=== PATIENT | male | born 1935 | race African-American/Black ===

== ENCOUNTER → 2019-04-17 | Outpatient (CLI) | payer OTHER ==
[2014-05-22 21:18] VITALS: BP 170/98
[~2019-04-17] MED LIST: AMLO5TAB10 PO; ASPI-630 PO; ESOM40CA PO; FLUO40CA9 PO; HYDR-2145 PO; HYDR-2761 PO; HYDR-2765 PO; LISI10TA2 PO; LOSA-73 PO; MELO15TA23 PO; NITR0.4T22 SL; SIMV10TA3 PO; TRAZ-118 PO; UNABLE MC
--- NOTE | 2019-04-17 09:58 | CARD ---
MR#: [id number] Date of Study: 04/17/2019 Ordering Physician: BEKA LEON, Referring Physician: BEKA LEON Tech: Jane Her RDCS APPROVED REPORT EXAM: Two-dimensional and M-mode echocardiogram with Doppler and color Doppler. Other Information Quality : AverageHR: 67bpm Rhythm : NSR INDICATION Dyspnea 2D DIMENSIONS RVDd2.9 (2.9-3.5cm)Left Atrium(2D)3.7 (1.6-4.0cm) IVSd1.1 (0.7-1.1cm)Aortic Root(2D)3.4 (2.0-3.7cm) LVDd3.6 (3.9-5.9cm)LVOT Diameter2.2 (1.8-2.4cm) PWd1.0 (0.7-1.1cm)LVDs2.6 (2.5-4.0cm) FS (%) 28.0 %SV30.8 ml LVEF(%)55.1 (>50%) M-Mode DIMENSIONS Left Atrium(MM)3.53 (2.5-4.0cm)Aortic Root3.14 (2.2-3.7cm) Aortic Valve AoV Peak Richard.313.6cm/sAoV VTI83.4cm AO Peak GR.39.3mmHgLVOT Peak Richard.87.3cm/s AO Mean GR.26mmHgAVA (VMAX)1.02cm2 HIPOLITO (VTI)1.00cm2 Mitral Valve MV E Otrosfqk55.1cm/sMV E Peak Gr.5mmHg MV DECEL [id number] A Jijvbfay583.1cm/s MV E Mean Gr.2mmHgE/A Ratio0.8 Pulmonary Valve PV Peak Svbidxfr82.2cm/s LEFT VENTRICLE The left ventricle is normal size. There is borderline to mild concentric left ventricular hypertroph y. The left ventricular systolic function is low normal. EF 50% There is grossly normal LV segmental wall motion. Septal motion suggestive of conduction defect. Transmitral Doppler flow pattern is Grade I-abnormal relaxation pattern. RIGHT VENTRICLE The right ventricle is normal size. There is normal right ventricular wall thickness. The right ventr icular systolic function is normal. ATRIA The left atrium size is normal. The right atrium size is normal. The interatrial septum is intact wit h no evidence for an atrial septal defect or patent foramen ovale as noted on 2-D or Doppler imaging. AORTIC VALVE The aortic valve is moderately calcified. The aortic valve is trileaflet. Doppler and Color Flow reve aled trace to mild aortic regurgitation. There is moderate to severe valvular aortic stenosis. Calcul ated aortic valve area is 1.0 cm2 with maximum pressure gradient of 39 mmHg and mean pressure gradien t of 26 mmHg. Consider low flow low gradient . MITRAL VALVE Mitral annular calcification is mild. There is no evidence of mitral valve prolapse. There is no mitr al valve stenosis. Doppler and Color-flow revealed trace mitral regurgitation. TRICUSPID VALVE The tricuspid valve is normal in structure and function. Doppler and Color Flow revealed no tricuspid valve regurgitation noted. There is no tricuspid valve prolapse or vegetation. There is no tricuspid valve stenosis. PULMONIC VALVE The pulmonic valve is not well visualized. GREAT VESSELS The aortic root is normal in size. The ascending aorta is normal in size. The IVC was not visualized. PERICARDIAL EFFUSION There is no evidence of significant pericardial effusion. Critical Notification Critical Value: No <Conclusion> The left ventricular systolic function is low normal. EF 50% There is grossly normal LV segmental wall motion. Septal motion suggestive of conduction defect. There is moderate to severe valvular aortic stenosis. Calculated aortic valve area is 1.0 cm2 with m aximum pressure gradient of 39 mmHg and mean pressure gradient of 26 mmHg. Consider low flow low grad ient . Signed by : Feng King, Electronically Approved : 04/17/2019 09:58:02
== END | disposition home or self-care (01) ==
LOC: ECHO 08:41
PROVIDERS: ATTEND Family Medicine
DX: I08.0 Rheumatic disorders of both mitral and aortic valves (principal)
CPT/HCPCS: 93306

== ENCOUNTER → 2019-09-18 | Outpatient (CLI) | payer OTHER ==
[2014-05-22 21:18] VITALS: BP 170/98
[~2019-09-18] MED LIST changes: +SIMV10TA15 PO; -SIMV10TA3 PO
--- NOTE | 2019-09-18 12:55 | CARD ---
MR#: [id number] Date of Study: 09/18/2019 Ordering Physician: DUKE RASMUSSEN, Referring Physician: DUKE RASMUSSEN, Tech: Brenda Ramirez [facility] APPROVED REPORT EXAM: Two-dimensional and M-mode echocardiogram with Doppler and color Doppler. Other Information Quality : Good INDICATION Aortic Valve Disease 2D DIMENSIONS RVDd2.4 (2.9-3.5cm)Left Atrium(2D)3.3 (1.6-4.0cm) IVSd1.1 (0.7-1.1cm)Aortic Root(2D)3.2 (2.0-3.7cm) LVDd4.4 (3.9-5.9cm)LVOT Diameter2.3 (1.8-2.4cm) PWd1.1 (0.7-1.1cm)LVDs2.7 (2.5-4.0cm) FS (%) 38.6 %SV59.1 ml LVEF(%)60.0 (>50%) Aortic Valve AoV Peak Richard.365.2cm/sAoV VTI83.3cm AO Peak GR.53.3mmHgLVOT Peak Richard.92.0cm/s AO Mean GR.25mmHgAVA (VMAX)1.06cm2 HIPOLITO (VTI)0.90cm2 Mitral Valve MV E Oxpuwuqm44.8cm/sMV DECEL BTWV144cn MV A Ivgeeljv589.2cm/sE/A Ratio0.7 Tricuspid Valve TR P. Aehtcqth470ll/sRAP YIQDGTRU2abFj TR Peak Gr.72oiDzUSWH81zxHb Pulmonary Vein S1 Yrfinbwk94.6cm/sD2 Dkewanqt61.8cm/s LEFT VENTRICLE The left ventricle is normal size. There is normal left ventricular wall thickness. The left ventricu lar systolic function is normal. The Ejection Fraction is 55%. There is normal LV segmental wall kiley on. Transmitral Doppler flow pattern is Grade I-abnormal relaxation pattern. RIGHT VENTRICLE The right ventricle is normal size. The right ventricular systolic function is normal. ATRIA The left atrium size is normal. The right atrium size is normal. The interatrial septum is intact wit h no evidence for an atrial septal defect or patent foramen ovale as noted on 2-D or Doppler imaging. AORTIC VALVE The aortic valve is calcified and displays decreased opening. Doppler and Color Flow revealed trace a ortic regurgitation. Calculated aortic valve area is 0.9 cm2 with maximum pressure gradient of 54 mmH g and mean pressure gradient of 25 mmHg. Doppler and color-flow analysis revealed moderate to severe aortic stenosis. MITRAL VALVE The mitral valve is calcified but opens well. Mitral annular calcification is mild. There is no evide nce of mitral valve prolapse. There is no mitral valve stenosis. Doppler and Color-flow revealed trac e mitral regurgitation. TRICUSPID VALVE The tricuspid valve is normal in structure and function. Doppler and Color Flow revealed trace tricus pid regurgitation. The PA pressure was estimated at 29 mmHg. There is no tricuspid valve stenosis. PULMONIC VALVE The pulmonic valve is not well visualized. Doppler and Color Flow revealed no pulmonic valvular regur gitation. There is no pulmonic valvular stenosis. GREAT VESSELS The aortic root is normal in size. The ascending aorta is normal in size. The IVC was not visualized. PERICARDIAL EFFUSION There is no evidence of significant pericardial effusion. Critical Notification Critical Value: No <Conclusion> The left ventricular systolic function is normal. The Ejection Fraction is 55%. There is normal LV segmental wall motion. Transmitral Doppler flow pattern is Grade I-abnormal relaxation pattern. Moderate to severe aortic stenosis. Mean gradient 25 mm Hg. Trace mitral regurgitation. Trace tricuspid regurgitation. The PA pressure was estimated at 29 mmHg. There is no evidence of significant pericardial effusion. Signed by : Dominic Mohr, Electronically Approved : 09/18/2019 12:55:20
== END | disposition home or self-care (01) ==
LOC: ECHO 10:43
PROVIDERS: ATTEND Internal Medicine Cardiovascular Disease
DX: I08.0 Rheumatic disorders of both mitral and aortic valves (principal)
CPT/HCPCS: 93306

== ENCOUNTER 2019-11-15 21:04 | Emergency (ER) | payer MEDICARE, OTHER ==
[~2019-11-15] VITALS: Ht 172.7 cm; Wt 75.0 kg
--- NOTE | 2019-11-15 22:47 | RAD ---
CT THORACIC SPINE WO CONTRAST History: Pain. T5-T6. No injury. Comparison: None. Technique: Noncontrast CT imaging was performed of the thoracic spine. Coronal and sagittal reconstructions were performed. Exposure: One or more of the following individualized dose reduction techniques were utilized for this examination: 1. Automated exposure control 2. Adjustment of the mA and/or kV according to patient size 3. Use of iterative reconstruction technique. Findings: Prior granulomatous disease within the chest. Calcified lymph nodes and calcified pulmonary nodules. Coronary artery calcification. Left renal parapelvic and cortical cysts Normal vertebral body height. No fractures. Moderate multilevel degenerative disc changes throughout the thoracic spine. Prominent upper lumbar spondylosis partially imaged. Multilevel facet arthropathy. Multilevel neuroforaminal narrowing. No high-grade canal stenosis.. Impression: 1. No acute fracture or subluxation of the thoracic spine. 2. Moderate multilevel thoracic spondylosis. Electronically signed by: Rex Madsen DO (11/15/2019 10:44 PM) [facility]
--- NOTE | 2019-11-15 22:54 | RAD ---
KUB History: Constipation Technique: Supine views of the abdomen. Comparison: None. Findings: Minimal small bowel gas. Air and stool scattered throughout the colon. Moderate colonic stool burden. Bilateral hip DJD. Multilevel lumbar spondylosis. Impression: 1. Nonobstructed bowel gas pattern. 2. Moderate colonic stool. Electronically signed by: Rex Madsen DO (11/15/2019 10:52 PM) [facility]
[2019-11-15 23:19] VITALS: BP 140/66
--- NOTE | 2019-11-15 23:25 | PHYS DOC ---
Past Medical History Past Medical History: Anxiety, Asthma, CHF, Depression, Hypertension Past Surgical History: Other Additional Past Surgical Histo: cataract Alcohol Use: Occasionally Drug Use: None Adult General Chief Complaint Chief Complaint: BACK PAIN OR INJURY HPI HPI 84-year-old male with underlying history of hypertension, diabetes, hyperlipidemia presents to the emergency Department complaints of right side pain. Pain is located just inferior to the shoulder blade. Patient states he was moving boxes in his basement on Tuesday noticed increasing pain after this activity. States pain is worse with movements. No significant pain at rest. Patient is well complains of constipation. She denies any chest pain, shortness breath, nausea, vomiting, abdominal pain. Movements make his pain worse, nothing makes his pain better. Review of Systems Review of Systems Constitutional: Denies fever or chills [] Respiratory: Denies cough or shortness of breath [] Cardiovascular: No additional information not addressed in HPI [] GI: Denies abdominal pain, nausea, vomiting, bloody stools or diarrhea, + constipation [] : Denies dysuria or hematuria [] Musculoskeletal: pain below right shoulder blade Integument: Denies rash or skin lesions [] Neurologic: Denies headache, focal weakness or sensory changes [] All other systems were reviewed and found to be within normal limits, except as documented in this note. Allergies Allergies Allergies Coded Allergies Type Severity Reaction Last Updated Verified codeine Allergy Mild vomitting 05/22/14 No Physical Exam Physical Exam Constitutional: Well developed, well nourished, no acute distress, non-toxic appearance. [] HENT: Normocephalic, atraumatic, bilateral external ears normal, oropharynx moist, no oral exudates, nose normal. [] Eyes: PERRLA, EOMI, conjunctiva normal, no discharge. [] Cardiovascular:Heart rate regular rhythm, no murmur [] Lungs & Thorax: Bilateral breath sounds clear to auscultation [] Abdomen: Bowel sounds normal, soft, no tenderness, no masses, no pulsatile masses. [] Skin: Warm, dry, no erythema, no rash. [] Back: No tenderness, no CVA tenderness, TTP below right shoulder blade Extremities: No tenderness, no edema. [] Neurologic: Alert and oriented X 3, no focal deficits noted. [] Psychologic: Affect normal, judgement normal, mood normal. [] Current Patient Data Vital Signs Vital Signs Date Time Temp Pulse Resp B/P (MAP) Pulse Ox O2 Delivery O2 Flow Rate FiO2 11/15/19 23:19 63 140/66 (90) 100 Room Air 11/15/19 21:30 97.8 12 97.8 EKG EKG [] Radiology/Procedures Radiology/Procedures [facility] [address] [place] [address] IMAGING REPORT Signed PATIENT: ANA MARÍA WEAVER ACCOUNT: [id number] : 1935 LOCATION: ER AGE: 84 SEX: M EXAM STATUS: REG ER ORD. PHYSICIAN: NAKUL SOLANO MD REASON: pain t5/t6, no injury PROCEDURE: CT THORACIC SPINE WO CONTRAST CT THORACIC SPINE WO CONTRAST History: Pain. T5-T6. No injury. Comparison: None. Technique: Noncontrast CT imaging was performed of the thoracic spine. Coronal and sagittal reconstructions were performed. Exposure: One or more of the following individualized dose reduction techniques were utilized for this examination: 1. Automated exposure control 2. Adjustment of the mA and/or kV according to patient size 3. Use of iterative reconstruction technique. Findings: Prior granulomatous disease within the chest. Calcified lymph nodes and calcified pulmonary nodules. Coronary artery calcification. Left renal parapelvic and cortical cysts Normal vertebral body height. No fractures. Moderate multilevel degenerative disc changes throughout the thoracic spine. Prominent upper lumbar spondylosis partially imaged. Multilevel facet arthropathy. Multilevel neuroforaminal narrowing. No high-grade canal stenosis.. Impression: 1. No acute fracture or subluxation of the thoracic spine. 2. Moderate multilevel thoracic spondylosis. Electronically signed by: Rex Madsen DO (11/15/2019 10:44 PM) [facility] DICTATED and SIGNED BY: REX MADSEN DO DATE: 11/15/19 2244 [] [facility] [address] [place] [address] IMAGING REPORT Signed PATIENT: ANA MARÍA WEAVER ACCOUNT: [id number] : 1935 LOCATION: ER AGE: 84 SEX: M EXAM STATUS: REG ER ORD. PHYSICIAN: NAKUL SOLANO MD REASON: constipation PROCEDURE: KUB KUB History: Constipation Technique: Supine views of the abdomen. Comparison: None. Findings: Minimal small bowel gas. Air and stool scattered throughout the colon. Moderate colonic stool burden. Bilateral hip DJD. Multilevel lumbar spondylosis. Impression: 1. Nonobstructed bowel gas pattern. 2. Moderate colonic stool. Electronically signed by: Rex Madsen DO (11/15/2019 10:52 PM) [facility] DICTATED and SIGNED BY: REX MADSEN DO DATE: 11/15/192251 Course & Med Decision Making Course & Med Decision Making Pertinent Labs and Imaging studies reviewed. (See chart for details) []84-year-old male with underlying history of hypertension, diabetes, hyperlipidemia presents to the emergency Department complaints of right side pain. Pain is located just inferior to the shoulder blade. Patient states he was moving boxes in his basement on Tuesday noticed increasing pain after this activity. States pain is worse with movements. No significant pain at rest. Patient is well complains of constipation. She denies any chest pain, shortness breath, nausea, vomiting, abdominal pain. Movements make his pain worse, nothing makes his pain better. Dragon Disclaimer Dragon Disclaimer This electronic medical record was generated, in whole or in part, using a voice recognition dictation system. Departure Departure Impression: Primary Impression: Upper back pain on right side Additional Impression: Constipation Disposition: HOME, SELF-CARE Condition: STABLE Referrals: BEKA LEON MD (PCP) Patient Instructions: Constipation, Adult, [id number]-[id number], Musculoskeletal Pain Additional Instructions: Recommend follow up with PCP 3 - 5 days Return to the ER with worsening symptoms, intractable pain, fever, altered mental status Tylenol/Motrin as needed for pain Lactulose prescription for constipation Flexeril as needed for spasm Scripts Diclofenac Sodium (DICLOFENAC SODIUM) 50 Mg Tablet. 0.5 TAB PO BID for 5 Days, #5 TAB 1 Refill Prov: NAKUL SOLANO MD 11/15/19 Lactulose (Lactulose) 10 Gm Packet 10 GM PO DAILY for 7 Days, #7 PKT Prov: NAKUL SOLANO MD 11/15/19 Cyclobenzaprine Hcl (CYCLOBENZAPRINE HCL) 10 Mg Tablet 1 TAB PO TID PRN for PAIN for 7 Days, #21 TAB Prov: NAKUL SOLANO MD 11/15/19 Problem Qualifiers Additional Impression: Constipation Constipation type: unspecified constipation type Qualified Codes: K59.00 - Constipation, unspecified NAKUL SOLANO MD Nov 15, 2019 23:25
[2019-11-15] MEDS ORDERED: LACT10PA3 PO (23:31)
[2019-11-15] MEDS ORDERED: CYCL10TA2 PO (23:31)
[2019-11-15] MEDS ORDERED: DICL50TA4 PO (23:32)
== END 2019-11-15 23:43 | disposition home or self-care (01) ==
LOC: ER 21:04
DX: M54.6 Pain in thoracic spine (principal); K59.00 Constipation, unspecified; I11.0 Hypertensive heart disease with heart failure; I50.9 Heart failure, unspecified; J45.909 Unspecified asthma, uncomplicated; F41.9 Anxiety disorder, unspecified; F32.9 Major depressive disorder, single episode, unspecified; Z88.5 Allergy status to narcotic agent
CPT/HCPCS: 72128; 74018; 99284-25

== ENCOUNTER → 2021-02-04 | Outpatient (CLI) | payer MEDICARE ==
[~2021-02-04] MED LIST changes: +AMLO-186 PO; -AMLO5TAB10 PO; +CYCL10TA2 PO; +DICL50TA4 PO; +LACT10PA3 PO; +LISI10TA16 PO; -LISI10TA2 PO
[2021-02-04 16:31] LABS: ALBUMIN 3.7 g/dL (3.4-5.0); CALCIUM 8.9 mg/dL (8.5-10.1); CREATININE 1.2 mg/dL (0.7-1.3); GFR 69.5; POTASSIUM 4.2 mmol/L (3.5-5.1); TOTAL BILIRUBIN 0.4 mg/dL (0.2-1.0); TOTAL PROTEIN 7.4 g/dL (6.4-8.2); URIC ACID 6.4 mg/dL (3.5-7.2)
--- NOTE | 2021-02-05 14:02 | CARD ---
MR#: [id number] Date of Study: 02/04/2021 Ordering Physician: DUKE RASMUSSEN, Referring Physician: DUKE RASMUSSEN, Tech: Brenda Ramirez [facility] APPROVED REPORT EXAM: Two-dimensional and M-mode echocardiogram with Doppler and color Doppler. Other Information Quality : Fair INDICATION Aortic Valve Disease 2D DIMENSIONS RVDd2.1 (2.9-3.5cm)Left Atrium(2D)4.0 (1.6-4.0cm) IVSd1.1 (0.7-1.1cm)Aortic Root(2D)2.5 (2.0-3.7cm) LVDd4.2 (3.9-5.9cm)LVOT Diameter2.3 (1.8-2.4cm) PWd1.1 (0.7-1.1cm)LVDs2.8 (2.5-4.0cm) FS (%) 34.4 %SV50.4 ml LVEF(%)63.9 (>50%) Aortic Valve AoV Peak Richard.382.2cm/sAoV VTI92.0cm AO Peak GR.58.4mmHgLVOT Peak Richard.94.0cm/s AO Mean GR.33mmHgAVA (VMAX)1.02cm2 HIPOLITO (VTI)1.00cm2 Mitral Valve MV E Kunyeqpt13.8cm/sMV DECEL DJLU706rx MV A Jpzlnhdg19.3cm/sE/A Ratio0.7 Tricuspid Valve TR P. Fcrqyvms064fc/sRAP TPIRTRIQ3xpBk TR Peak Gr.25xnKqFMBM33uyCu Pulmonary Vein S1 Kgeexpqq41.5cm/sD2 Jfiykxtx62.2cm/s LEFT VENTRICLE The left ventricle is normal size. There is normal left ventricular wall thickness. The left ventricu lar systolic function is normal and the ejection fraction is within normal range. The Ejection Fracti on is 55-60%. There is normal LV segmental wall motion. Tissue Doppler imaging reveals moderate left ventricular diastolic dysfunction. RIGHT VENTRICLE The right ventricle is normal size. The right ventricular systolic function is normal. ATRIA The left atrium is mildly dilated. The right atrium size is normal. The interatrial septum is intact with no evidence for an atrial septal defect or patent foramen ovale as noted on 2-D or Doppler imagi ng. AORTIC VALVE The aortic valve is calcified and displays decreased opening. Doppler and Color Flow revealed trace t o mild aortic regurgitation. Calculated aortic valve area is 1.0 cm2 with maximum pressure gradient o f 58 mmHg and mean pressure gradient of 33 mmHg. Doppler and color-flow analysis revealed moderate to severe aortic stenosis. MITRAL VALVE The mitral valve is calcified but opens well. There is no evidence of mitral valve prolapse. There is no mitral valve stenosis. Doppler and Color Flow revealed no mitral valve regurgitation noted. TRICUSPID VALVE The tricuspid valve is normal in structure and function. Doppler and Color Flow revealed physiologica l tricuspid regurgitation. The PA pressure was estimated at 27 mmHg. There is no tricuspid valve sten osis. PULMONIC VALVE The pulmonic valve is not well visualized. Doppler and Color Flow revealed trace to mild pulmonic jennifer vular regurgitation. There is no pulmonic valvular stenosis. GREAT VESSELS The aortic root is normal in size. The ascending aorta is not well seen. The IVC was not visualized. PERICARDIAL EFFUSION There is no evidence of significant pericardial effusion. Critical Notification Critical Value: No <Conclusion> The left ventricular systolic function is normal and the ejection fraction is within normal range. Th e Ejection Fraction is 55-60%. There is normal LV segmental wall motion. Calculated aortic valve area is 1.0 cm2 with maximum pressure gradient of 58 mmHg and mean pressure g radient of 33 mmHg. Doppler and color-flow analysis revealed moderate to severe aortic stenosis. Signed by : Duke Rasmussen, Electronically Approved : 02/05/2021 14:01:53
== END ==
LOC: ECHO 14:48
PROVIDERS: ATTEND Internal Medicine Cardiovascular Disease
DX: I08.8 Other rheumatic multiple valve diseases (principal)
CPT/HCPCS: 36415; 80053; 83880; 84550; 93306

== ENCOUNTER 2021-04-16 18:28 | Emergency (ER) | payer MEDICARE ==
[~2021-04-16] VITALS: Ht 172.7 cm; Wt 82.7 kg
--- NOTE | 2021-04-16 19:14 | PHYS DOC ---
Past Medical History Past Medical History: Anxiety, Asthma, CHF, Depression, Hypertension Past Surgical History: Other Additional Past Surgical Histo: cataract Smoking Status: Former Smoker Alcohol Use: Occasionally Drug Use: None General Adult EDM: Chief Complaint: MECHANICAL FALL HPI: HPI: Patient is a 86 year old male who presented to ER due to right shoulder pain, right elbow pain, right hip pain after he fell on the patio. Patient said he was walking slipped and fell down, l landed on his right side, hit his right elbow, right shoulder, right hip on the ground. Patient denies hit his head. Patient is not on blood thinner. Patient denies any headache, no neck pain, no back pain. Review of Systems: Review of Systems: Constitutional: Denies fever or chills. [] Eyes: Denies change in visual acuity. [] HENT: Denies nasal congestion or sore throat. [] Respiratory: Denies cough or shortness of breath. [] Cardiovascular: Denies chest pain or edema. [] GI: Denies abdominal pain, nausea, vomiting, bloody stools or diarrhea. [] : Denies dysuria. [] Musculoskeletal: Positive for right hip pain, right shoulder pain, right elbow pain. Integument: Denies rash. [] Neurologic: Denies headache, focal weakness or sensory changes. [] Endocrine: Denies polyuria or polydipsia. [] Lymphatic: Denies swollen glands. [] Psychiatric: Denies depression or anxiety. [] Heart Score: C/O Chest Pain: N/A Risk Factors: Risk Factors: DM, Current or recent (<one month) smoker, HTN, HLP, family history of CAD, obesity. Risk Scores: Score 0 - 3: 2.5% MACE over next 6 weeks - Discharge Home Score 4 - 6: 20.3% MACE over next 6 weeks - Admit for Clinical Observation Score 7 - 10: 72.7% MACE over next 6 weeks - Early Invasive Strategies Current Medications: Current Medications Medications (Trade) Dose Ordered Sig/Zane Start Time Stop Time Status Last Admin Dose Admin Diphtheria/ Tetanus/Acell Pertussis (ADACEL TDap SYRINGE) 0.5 ml ONCE ONCE 04/16/21 19:15 04/16/21 19:16 Allergies: Allergies: Allergies Coded Allergies Type Severity Reaction Last Updated Verified codeine Allergy Mild vomitting 05/22/14 No Physical Exam: PE: Constitutional: Well developed, well nourished, no acute distress, non-toxic appearance. [] HENT: Normocephalic, atraumatic, bilateral external ears normal, oropharynx moist, no oral exudates, nose normal. [] Eyes: PERRLA, EOMI, conjunctiva normal, no discharge. [] Neck: Normal range of motion, no tenderness, supple, no stridor. [] Cardiovascular:Heart rate regular rhythm, POSITIVE FOR LOUD SYSTOLIC HEART murmur [] Lungs & Thorax: Bilateral breath sounds clear to auscultation [] Abdomen: Bowel sounds normal, soft, no tenderness, no masses, no pulsatile masses. [] Skin: Warm, dry, no erythema, no rash. Superficial skin abrasion on right elbow. Back: No tenderness, no CVA tenderness. [] Extremities: Right shoulder tender to palpation, no deformity noted, right elbow with skin abrasion on the back, tender to palpation. Right hip is tender to palpation, no deformity noted, no leg shortening or rotation Neurologic: Alert and oriented X 3, normal motor function, normal sensory function, no focal deficits noted. [] Psychologic: Affect normal, judgement normal, mood normal. [] Current Patient Data: Vital Signs: Vital Signs Date Time Temp Pulse Resp B/P (MAP) Pulse Ox O2 Delivery O2 Flow Rate FiO2 04/16/21 18:56 99.2 83 18 153/79 (103) 98 Room Air 99.2 EKG: EKG: [] Radiology/Procedures: Radiology/Procedures: [][facility] [address] [place] [address] IMAGING REPORT Signed PATIENT: ANA MARÍA WEAVER ACCOUNT: [id number] : 1935 LOCATION: ER AGE: 86 SEX: M EXAM STATUS: REG ER ORD. PHYSICIAN: ELHAM ANDREW DO REASON: FELL, RIGHT ELBOW INJURED PROCEDURE: ELBOW RIGHT 3V EXAM: 1. Right shoulder 3 views. 2. Right elbow 3 views. HISTORY: Fall, pain. COMPARISON: None. FINDINGS: No fractures are appreciated at the right shoulder. Acromioclavicular and glenohumeral joint spaces and alignment are maintained for patient age. Calcific densities in the region of the rotator cuff insertion suggest calcific tendinitis. No fractures are identified at the right elbow. There is rotation on the lateral projection, but no joint effusion is appreciated. There is mild soft tissue swelling at the olecranon. IMPRESSION: 1. Findings suggesting calcific tendinitis at the rotator cuff insertion. 2. Correlate for mild olecranon bursitis. Electronically signed by: Sal Torres MD (04/16/2021 7:59 PM) [facility] DICTATED and SIGNED BY: TASHA TORRES MD DATE: 04/16/[id number] 0 [facility] [address] [place] [address] IMAGING REPORT Signed PATIENT: ANA MARÍA WEAVER ACCOUNT: [id number] : 1935 LOCATION: ER AGE: 86 SEX: M EXAM STATUS: REG ER ORD. PHYSICIAN: ELHAM ANDREW DO REASON: FELL, RIGHT HIP PAIN PROCEDURE: HIP RIGHT 2V WITH PELVIS EXAM: Frontal pelvis with two-view right hip. HISTORY: Fall, right hip pain. COMPARISON: None. FINDINGS: No fractures are identified. Small osteophytes indicate mild right hip osteoarthritis. The joint spaces of both hips appear mostly maintained. There are moderate degenerative changes of the lower lumbar spine. IMPRESSION: 1. Mild right hip osteoarthritis. Electronically signed by: Sal Torres MD (04/16/2021 8:36 PM) [facility] DICTATED and SIGNED BY: TASHA TORRES MD DATE: 04/16/[id number] 0 Course & Med Decision Making: Course & Med Decision Making Pertinent Labs and Imaging studies reviewed. (See chart for details) Patient is an 86-year-old male who presented to ER due to right elbow pain, right hip pain, right shoulder pain after he fell. X-ray did not show any fracture. Patient will discharge home. He was advised to come to the ER if he continued left hip pain in a week Dragon Disclaimer: Dragsofia Disclaimer: This electronic medical record was generated, in whole or in part, using a voice recognition dictation system. Departure Departure Impression: Primary Impression: Contusion of hip, right Additional Impressions: Contusion of shoulder, right Contusion of elbow, right Disposition: 01 HOME / SELF CARE / HOMELESS Condition: STABLE Referrals: BEKA LOEN MD (PCP) Follow-up with your doctor Patient Instructions: Elbow Contusion, Hip Pointer (Iliac Crest Contusion)- [facility] Additional Instructions: Thank you for visiting our Emergency Department. We appreciate you trusting us with your care. If any additional problems come up don't hesitate to return to visit us. Please follow up with your primary care provider so they can plan additional care if needed and know about the problem that you had. If symptoms worsen come back to the Emergency Department. Any concerning symptoms that start such as chest pain, shortness of air, weakness or numbness on one side of the body, running high fevers or any other concerning symptoms return to the ER. ELHAM ANDREW DO Apr 16, 2021 19:14
[2021-04-16] MEDS ORDERED: DIPH,PERTUSS(ACELL),TET VAC/PF 0.5 ML SYRINGE. VAX IM ONE (19:15)
[2021-04-16] MEDS ORDERED: HYDROcodone/APAP 5/325MG 1 TAB TABLET PO ONE (19:30)
--- NOTE | 2021-04-16 20:01 | RAD ---
EXAM: 1. Right shoulder 3 views. 2. Right elbow 3 views. HISTORY: Fall, pain. COMPARISON: None. FINDINGS: No fractures are appreciated at the right shoulder. Acromioclavicular and glenohumeral join t spaces and alignment are maintained for patient age. Calcific densities in the region of the rotato r cuff insertion suggest calcific tendinitis. No fractures are identified at the right elbow. There is rotation on the lateral projection, but no j oint effusion is appreciated. There is mild soft tissue swelling at the olecranon. IMPRESSION: 1. Findings suggesting calcific tendinitis at the rotator cuff insertion. 2. Correlate for mild olecranon bursitis. Electronically signed by: Sal Torres MD (04/16/2021 7:59 PM) [facility]
--- NOTE | 2021-04-16 20:39 | RAD ---
EXAM: Frontal pelvis with two-view right hip. HISTORY: Fall, right hip pain. COMPARISON: None. FINDINGS: No fractures are identified. Small osteophytes indicate mild right hip osteoarthritis. The joint spaces of both hips appear mostly maintained. There are moderate degenerative changes of the lo wer lumbar spine. IMPRESSION: 1. Mild right hip osteoarthritis. Electronically signed by: Sal Torres MD (04/16/2021 8:36 PM) [facility]
[2021-04-16 21:28] VITALS: BP 150/73
== END 2021-04-16 21:53 | disposition home or self-care (01) ==
LOC: ER 18:28
DX: S40.011A Contusion of right shoulder, initial encounter (principal); S70.01XA Contusion of right hip, initial encounter; S50.01XA Contusion of right elbow, initial encounter; J45.909 Unspecified asthma, uncomplicated; I11.0 Hypertensive heart disease with heart failure; I50.9 Heart failure, unspecified; F41.9 Anxiety disorder, unspecified; F32.9 Major depressive disorder, single episode, unspecified; Z88.5 Allergy status to narcotic agent; W01.0XXA Fall on same level from slipping, tripping and stumbling without subsequent striking against object, initial encounter; Y93.01 Activity, walking, marching and hiking; Y92.89 Other specified places as the place of occurrence of the external cause; Y99.8 Other external cause status
CPT/HCPCS: 73030; 73080; 73502; 90471; 90715; 99285-25

== ENCOUNTER → 2021-11-26 | Outpatient (CLI) | payer MEDICARE ==
[~2021-11-26] MED LIST changes: +CYCL10TA19 PO; -CYCL10TA2 PO
--- NOTE | 2021-11-27 10:16 | CARD ---
MR#: [id number] Date of Study: 11/26/2021 Ordering Physician: DUKE RASMUSSEN, Referring Physician: DUKE RASMUSSEN, Tech: Meghan Wade, [facility] APPROVED REPORT EXAM: Two-dimensional and M-mode echocardiogram with Doppler and color Doppler. Other Information Quality : Average INDICATION Aortic Valve Disease RISK FACTORS Diabetes 2D DIMENSIONS Left Atrium(2D)3.2 (1.6-4.0cm)IVSd1.1 (0.7-1.1cm) Aortic Root(2D)3.3 (2.0-3.7cm)LVDd5.0 (3.9-5.9cm) LVOT Diameter2.0 (1.8-2.4cm)PWd1.1 (0.7-1.1cm) LVDs3.2 (2.5-4.0cm)FS (%) 35.4 % SV75.2 ml Aortic Valve AoV Peak Richard.314.5cm/sAoV VTI83.2cm AO Peak GR.39.6mmHgLVOT Peak Richard.81.2cm/s LVOT VTI 19.25cmAO Mean GR.25mmHg HIPOLITO (VMAX)0.66rz7EGM (VTI)0.75cm2 Mitral Valve MV E Gnbyehyt50.0cm/sMV DECEL QGPG323kd MV A Djctpegt80.4cm/sMV E Mean Gr.2mmHg MV MDF00mnH/A Ratio0.9 MVA (PHT)4.02cm2 TDI E/Lateral E'11.7E/Medial E'12.4 Pulmonary Valve PV Peak Wdckwtzw96.8cm/sPV Peak Grad.3mmHg Tricuspid Valve TR P. Jqlbrsgl969oz/sRAP UUNKQSYO4yiGc TR Peak Gr.64riEnOWPJ84cnXa Pulmonary Vein S1 Orhrwgxc66.2cm/sD2 Cgdxqdsy35.5cm/s PVa mtmtpoqt563fsjt LEFT VENTRICLE The left ventricle is normal size. There is mild concentric left ventricular hypertrophy. The left ve ntricular systolic function is normal and the ejection fraction is within normal range. LV ejection f raction of 55 to 60%. There is normal LV segmental wall motion. RIGHT VENTRICLE The right ventricle is normal size. There is normal right ventricular wall thickness. The right ventr icular systolic function is normal. ATRIA The left atrium size is normal. The right atrium size is normal. AORTIC VALVE The aortic valve is calcified and displays decreased opening. Doppler and Color Flow revealed no sign ificant aortic regurgitation. Calculated aortic valve area is .83 cm2 with maximum pressure gradient of 53 mmHg and mean pressure gradient of 33 mmHg. There is moderate to severe valvular aortic stenosi s. MITRAL VALVE The mitral valve is normal in structure and function. There is no evidence of mitral valve prolapse. There is no mitral valve stenosis. Doppler and Color-flow revealed trace mitral regurgitation. TRICUSPID VALVE The tricuspid valve is not well visualized. Doppler and Color Flow revealed trace tricuspid regurgita tion with an estimated PAP of 23 mmHg. There is no tricuspid valve stenosis. PULMONIC VALVE The pulmonic valve is not well visualized. Doppler and Color Flow revealed no pulmonic valvular regur gitation. GREAT VESSELS The aortic root is normal in size. The ascending aorta is normal in size. The IVC was not visualized. PERICARDIAL EFFUSION There is no evidence of significant pericardial effusion. Critical Notification Critical Value: No <Conclusion> The left ventricle is normal size. The left ventricular systolic function is normal and the ejection fraction is within normal range. LV ejection fraction of 55 to 60%. There is normal LV segmental wall motion. There is mild concentric left ventricular hypertrophy. The aortic valve is calcified and displays decreased opening. Calculated aortic valve area is .83 cm2 with maximum pressure gradient of 53 mmHg and mean pressure g radient of 33 mmHg. There is moderate to severe valvular aortic stenosis. Doppler and Color-flow revealed trace mitral regurgitation. Doppler and Color Flow revealed trace tricuspid regurgitation with an estimated PAP of 23 mmHg. Signed by : Wood Bonner MD Electronically Approved : 11/27/2021 10:16:00
== END ==
LOC: ECHO 13:03
PROVIDERS: ATTEND Internal Medicine Cardiovascular Disease
DX: I35.0 Nonrheumatic aortic (valve) stenosis (principal); I51.7 Cardiomegaly
CPT/HCPCS: 93306; C8929

== ENCOUNTER → 2022-01-08 | Outpatient (CLI) | payer MEDICARE ==
[2022-01-08 15:33] LABS: ALBUMIN 3.7 g/dL (3.4-5.0); CALCIUM 9.3 mg/dL (8.5-10.1); CREATININE 1.5 mg/dL (0.7-1.3); GFR 53.6; POTASSIUM 4.2 mmol/L (3.5-5.1); TOTAL BILIRUBIN 0.4 mg/dL (0.2-1.0); TOTAL PROTEIN 7.4 g/dL (6.4-8.2)
--- NOTE | 2022-01-08 17:15 | RAD ---
MR#: [id number] Date of Study: 01/08/2022 Ordering Physician: DUKE RASMUSSEN, Referring Physician: DUKE RASMUSSEN, Tech: Meghan Caruso RDMS, RVT, RTR APPROVED REPORT Patient Location: OUT-PATIENT Exam Type: Ankle to Brachial Index Indications PAD Pressures/Indices RightABI LeftABI Brachial 986zhDb4.24Brachial 734qxWk3.11 Ankle(PT) Ankle(PT) 136mmHg Ankle(DP) 163mmHgAnkle(DP) 146mmHg Critical Notification Critical Value: No <Conclusion> Mildly elevated bilateral TIM consistent with calcification. Signed by : Duke Rasmussen, Electronically Approved : 01/08/2022 17:15:00
--- NOTE | 2022-01-08 17:15 | RAD ---
MR#: [id number] Date of Study: 01/08/2022 Ordering Physician: DUKE RASMUSSEN, Referring Physician: DUKE RASMUSSEN, Tech: Meghan Caruso, JOSE FRANCISCOMS, RVT, RTR APPROVED REPORT Patient Location: OUT-PATIENT Indications PAD VELOCITY AND DOPPLER WAVEFORM ANALYSIS RIGHT cm/secWaveformSeverity LEFT cm/secWaveform Severity pCFA 91.8pCFA 83.6 Prof Fem Art. 59.4Prof Fem Art. 51.0 Fem Art Prox. 68.4Fem Art Prox. 68.9 Fem Art Mid. 69.4Fem Art Mid. 63.6 Fem Art Dist. 71.0Fem Art Dist. 61.0 Pop Art(AK) 64.7Pop Art(AK) 73.1 BOTTLE AND GLASS INSPECTOR Prox. 33.8PTA Prox. 61.5 BOTTLE AND GLASS INSPECTOR Dist. Occluded (100%)BOTTLE AND GLASS INSPECTOR Dist. 25.6 Per Art Prox. 100.1Per Art Prox. 134.2 ROBERT Prox. 80.1ATA Prox. 55.5 DPA 242.9Severe > 75%DPA 40.5 Findings Grayscale images of the bilateral lower extremity arterial vessels demonstrate moderate diffuse ather osclerotic plaque. From the common femoral artery to the popliteal segment bilaterally there are mos tly biphasic waveforms without any significant obstructive disease. On the right side below the knee the posterior tibial artery is occluded with likely moderate disease involving the anterior tibial and peroneal vessels. On the left side there is moderate disease diff usely below the knee but there is three-vessel runoff Critical Notification Critical Value: No <Conclusion> 1. 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 No significant above-knee disease bilaterally Signed by : Duke Rasmussen, Electronically Approved : 01/08/2022 17:14:34
== END ==
LOC: US 12:55
PROVIDERS: ATTEND Internal Medicine Cardiovascular Disease
DX: I70.203 Unspecified atherosclerosis of native arteries of extremities, bilateral legs (principal); R94.39 Abnormal result of other cardiovascular function study; M79.89 Other specified soft tissue disorders
CPT/HCPCS: 36415; 80053; 83880; 93922; 93925

== ENCOUNTER → 2022-01-13 | Outpatient (CLI) | payer MEDICARE ==
--- NOTE | 2022-01-13 16:35 | RAD ---
MR#: [id number] Date of Study: 01/13/2022 Ordering Physician: DUKE RASMUSSEN, Referring Physician: DUKE RASMUSSEN, Tech: Monroe Rutherford MBA, RDMS, RVT, RDCS, RTR APPROVED REPORT Patient Location : OUT-PATIENT Indications Lower Extremity Edema : Bilateral Findings Limited grayscale images of the saphenofemoral junctions are grossly unremarkable. The right great saphenous vein measures 5.4 mm and has no evidence of reflux. The left greater saphenous vein measures approximately 6.4 mm and has no evidence of reflux. The bilateral lesser saphenous veins do not reveal any evidence of reflux. Critical Notification Critical Value: No <Conclusion> 1. Negative for reflux in the bilateral greater and lesser saphenous veins Signed by : Duke Rasmussen, Electronically Approved : 01/13/2022 16:34:46
== END ==
LOC: US 13:59
PROVIDERS: ATTEND Internal Medicine Cardiovascular Disease
DX: M79.89 Other specified soft tissue disorders (principal)
CPT/HCPCS: 93970